=== PATIENT | male | born 1995 | race African-American/Black ===

== ENCOUNTER 2016-10-03 17:14 | Emergency (ER) | payer OTHER ==
[~2016-10-03] VITALS: Ht 182.9 cm; Wt 75.0 kg
[2016-10-03 17:52] VITALS: BP 135/81
[2016-10-03] MEDS ORDERED: IPRATROPIUM BROMIDE (0.02%) 0.5MG/2.5ML NEB HHN STA (18:20)
[2016-10-03] MEDS ORDERED: ALBUTEROL (0.083%) 2.5MG/3ML NEB HHN STA (18:20)
== END 2016-10-03 19:44 | disposition home or self-care (01) ==
LOC: ER 19:39
DX: J45.901 Unspecified asthma with (acute) exacerbation (principal); R03.0 Elevated blood-pressure reading, without diagnosis of hypertension; F12.90 Cannabis use, unspecified, uncomplicated
CPT/HCPCS: 94640; 99283; J7611

== ENCOUNTER 2016-10-04 07:39 | Emergency (ER) | payer OTHER ==
[~2016-10-04] VITALS: Ht 167.6 cm; Wt 75.0 kg
[2016-10-04] MEDS ORDERED: ALBUTEROL (0.083%) 2.5MG/3ML NEB HHN STA (09:02)
[2016-10-04 11:25] VITALS: BP 101/51
== END 2016-10-04 11:27 | disposition home or self-care (01) ==
LOC: ER 07:39
DX: J45.909 Unspecified asthma, uncomplicated (principal); R03.0 Elevated blood-pressure reading, without diagnosis of hypertension
CPT/HCPCS: 71020; 94640; 99284; J7611; Z7610

== ENCOUNTER 2016-10-05 03:28 | Emergency (ER) | payer OTHER ==
[~2016-10-05] VITALS: Ht 182.9 cm; Wt 75.0 kg
[2016-10-05] MEDS ORDERED: IPRATROPIUM BROMIDE (0.02%) 0.5MG/2.5ML NEB HHN STA (04:53)
[2016-10-05] MEDS ORDERED: ALBUTEROL (0.083%) 2.5MG/3ML NEB HHN STA (04:53)
[2016-10-05 05:45] VITALS: BP 129/70
== END 2016-10-05 05:54 | disposition home or self-care (01) ==
LOC: ER 03:46
DX: J45.901 Unspecified asthma with (acute) exacerbation (principal); R03.0 Elevated blood-pressure reading, without diagnosis of hypertension; F17.210 Nicotine dependence, cigarettes, uncomplicated; F41.8 Other specified anxiety disorders; R06.82 Tachypnea, not elsewhere classified
CPT/HCPCS: 94640; 99283; J7611